=== PATIENT | female | born 1975 | race African-American/Black ===

== ENCOUNTER 2023-06-09 19:13 | Inpatient (IN) | payer OTHER ==
[~2023-06-09] VITALS: Ht 160 cm; Wt 71.7 kg
[2023-06-09 19:15] VITALS: O2SAT 100
[2023-06-09 20:59] LABS: BASOPHILS % 0.6 % (0.0-2.0); EOSINOPHILS % 0.4 % (0.0-5.0); HEMATOCRIT. 34.6 % (36.0-48.0); HEMOGLOBIN. 11.5 g/dL (12.0-16.0); LYMPHOCYTES % 13.3 % (20.0-50.0); MEAN CORPUSCULAR HEMOGLOBIN 27.7 pg (28.0-32.0); MEAN CORPUSCULAR HGB CONC 33.3 g/dL (31.0-37.0); MEAN CORPUSCULAR VOLUME 83.2 fL (81.0-99.0); MEAN PLATELET VOLUME 7.9 fl (7.4-10.4); MONOCYTES % 6.1 % (2.0-8.0); NEUTROPHILS % 79.6 % (40.0-76.0); PLATELET 334 x1000/uL (130-400); RED BLOOD CELL COUNT 4.16 mill/uL (4.2-5.4); RED CELL DISTRIBUTION WIDTH 16.6 % (11.6-14.6); WHITE BLOOD COUNT 10.8 x1000/uL (4.5-11.0)
[2023-06-09 21:05] LABS: CHLORIDE 107 mEq/L (98-107); INDEX HEMOLYSI 1 (1-3); INDEX ICTERIC 1 (1-4); INDEX LIPEMIC 1 (1-3); POTASSIUM 3.3 mEq/L (3.5-5.1); SODIUM 140 mEq/L (136-145)
[2023-06-09 21:10] LABS: HCG SCREEN NEGATIVE
[2023-06-09] MEDS ORDERED: POTASSIUM CHLORIDE 20MEQ/PACKET PO NR (21:15)
[2023-06-09 21:16] LABS: ALANINE AMINOTRANSFERASE 17 IU/L (13-61); ALBUMIN 3.5 g/dL (3.4-5.0); ASPARTATE AMINOTRANSFERASE 12 IU/L (15-37); BILIRUBIN TOTAL 0.3 mg/dL (0.1-1.0); CALCIUM 8.4 mg/dL (8.5-10.1); CARBON DIOXIDE 28 mEq/L (21-32); CREATININE 0.6 mg/dL (0.6-1.3); GLUCOSE 100 mg/dL (70-105); NT PRO B-TYPE NATRIURETIC PEP 77 pg/mL (5-125); PROTEIN TOTAL 7.2 g/dL (6.0-8.3); UREA NITROGEN BLOOD 15 mg/dL (7-21)
[2023-06-10] VITALS (9 sets, daily range): BP systolic 94–132; BP diastolic 44–79; PULSE 63–88; RESP 14–18; TEMP 97.8–98.4
[2023-06-10 00:12] LABS: TROPONIN I HIGH SENSITIVITY 557 ng/L (<54)
[2023-06-10] MEDS ORDERED: NITROGLYCERIN 0.4MG TABLET SL SL ONE (00:15)
[2023-06-10] MEDS ORDERED: HEPARIN 25,000 UNITS PREMIX 250 ML IV ONE (00:15)
[2023-06-10] MEDS ORDERED: HEPARIN 5000 UNITS/ML VIAL IV ONE (00:15)
[2023-06-10] MEDS ORDERED: HEPARIN BOLUS PRN aPTT 30-44 IV (00:30)
[2023-06-10] MEDS ORDERED: HEPARIN 25,000 UNITS PREMIX 250 ML IV SCH (00:30)
[2023-06-10] MEDS ORDERED: HEPARIN BOLUS PRN aPTT <30 IV (00:30)
[2023-06-10] MEDS ORDERED: HEPARIN 60 UNITS/KG BOLUS IV NR (00:30)
[2023-06-10 03:23] LABS: PARTIAL THROMBOPLASTIN TIME 23.9 sec (23.4-31.0); PROTHROMBIN TIME 10.7 sec (9.6-11.0)
[2023-06-10] MEDS ORDERED: LORAZEPAM 1MG TABLET PO PRN (06:15)
[2023-06-10] MEDS ORDERED: NON FORMULARY PATIENT HOME MED XX SCH (07:15)
[2023-06-10] MEDS ORDERED: OMEPRAZOLE 20MG CAPSULE EXTENDED RELEASE PO SCH (07:30)
[2023-06-10] MEDS ORDERED: ONDANSETRON HCL 4MG/2ML INJ IV PRN (07:30)
[2023-06-10] MEDS ORDERED: CLONIDINE 0.1MG TABLET PO PRN (07:30)
[2023-06-10] MEDS ORDERED: MAGNESIUM/ALUMINUM HYDROXIDE/SIMETHICONE 30ML UDC PO PRN (07:30)
[2023-06-10] MEDS ORDERED: HYDROCODONE/ACETAMINOPHEN 5/325MG TABLET PO PRN (07:30)
[2023-06-10] MEDS ORDERED: ACETAMINOPHEN 325MG TABLET PO PRN (07:30)
[2023-06-10] MEDS ORDERED: ASPIRIN 81MG EC TABLET PO SCH (09:00)
[2023-06-10] MEDS ORDERED: SERTRALINE HCL 100MG TABLET PO SCH (09:00)
[2023-06-10 09:26] LABS: EOSINOPHILS % 0.9 % (0.0-5.0); HEMATOCRIT. 35.2 % (36.0-48.0); HEMOGLOBIN. 11.6 g/dL (12.0-16.0); LYMPHOCYTES % 25.1 % (20.0-50.0); MEAN CORPUSCULAR HEMOGLOBIN 27.8 pg (28.0-32.0); MEAN CORPUSCULAR HGB CONC 32.9 g/dL (31.0-37.0); MEAN CORPUSCULAR VOLUME 84.5 fL (81.0-99.0); MEAN PLATELET VOLUME 8.1 fl (7.4-10.4); MONOCYTES % 6.7 % (2.0-8.0); NEUTROPHILS % 66.3 % (40.0-76.0); PLATELET 318 x1000/uL (130-400); RED BLOOD CELL COUNT 4.17 mill/uL (4.2-5.4); RED CELL DISTRIBUTION WIDTH 16.6 % (11.6-14.6); WHITE BLOOD COUNT 5.9 x1000/uL (4.5-11.0)
[2023-06-10 09:29] LABS: CHLORIDE 108 mEq/L (98-107); INDEX HEMOLYSI 1 (1-3); INDEX ICTERIC 1 (1-4); INDEX LIPEMIC 1 (1-3); SODIUM 140 mEq/L (136-145)
[2023-06-10 09:31] LABS: CALCIUM 8.7 mg/dL (8.5-10.1)
[2023-06-10 09:39] LABS: CARBON DIOXIDE 27 mEq/L (21-32); CHOLESTEROL 178 mg/dL (<200); CREATININE 0.6 mg/dL (0.6-1.3); GLUCOSE 97 mg/dL (70-105); HDL CHOLESTEROL 65 mg/dL (40-59); LDL CHOLESTEROL 105 mg/dL (5-100); TRIGLYCERIDE 93 mg/dL (0-150); UREA NITROGEN BLOOD 11 mg/dL (7-21)
[2023-06-10 09:43] LABS: TROPONIN I HIGH SENSITIVITY 472 ng/L (<54)
[2023-06-10] MEDS ORDERED: NITROGLYCERIN 0.4MG TABLET SL SL PRN (09:45)
[2023-06-10] MEDS ORDERED: POTASSIUM CHLORIDE 20MEQ TABLET SR PO NR (09:45)
[2023-06-10] MEDS ORDERED: ENOXAPARIN 80MG/0.8ML SYR SUBCUT SCH (10:00)
[2023-06-10 12:51] LABS: TROPONIN I HIGH SENSITIVITY 420 ng/L (<54)
[2023-06-10 15:16] LABS: TROPONIN I HIGH SENSITIVITY 393 ng/L (<54)
[2023-06-10 15:25] LABS: CLARITY URINE CLEAR (CLEAR); COLOR URINE YELLOW (YELLOW); GLUCOSE URINE NEGATIVE (NEGATIVE); KETONES URINE NEGATIVE (NEGATIVE); LEUKOCYTE ESTERASE URINE TRACE (NEGATIVE); NITRITE URINE NEGATIVE (NEGATIVE); OCCULT BLOOD URINE NEGATIVE (NEGATIVE); PH URINE 7.5 (4.5-8.0); PROTEIN URINE NEGATIVE (NEGATIVE); SPECIFIC GRAVITY URINE 1.011 (1.005-1.030); UROBILINOGEN URINE 0.2 E.U./dL (0.2-1.0)
[2023-06-10 15:31] LABS: RBC URINE 0-2 /hpf (0-2); WBC URINE 0-2 /hpf (0-2); YEAST URINE NONE SEEN
[2023-06-10 15:44] LABS: *AMPHETAMINES SCREEN URINE NEGATIVE (NEGATIVE); *BARBITURATES SCREEN URINE NEGATIVE (NEGATIVE); *BENZODIAZEPINES SCREEN URINE NEGATIVE (NEGATIVE); *COCAINE SCREEN URINE NEGATIVE (NEGATIVE); ECSTASY MDMA SCREEN URINE NEGATIVE (NEGATIVE); METHADONE URINE SCREEN NEGATIVE (NEGATIVE); OPIATES URINE SCREEN NEGATIVE (NEGATIVE); PHENCYCLIDINE URINE SCREEN NEGATIVE (NEGATIVE)
[2023-06-10 15:46] LABS: CANNABINOID URINE SCREEN PRESUMTIVE POSITIVE (NEGATIVE)
[2023-06-10 16:11] LABS: BACTERIA URINE FEW; SQUAMOUS EPITHELIAL CELL URINE FEW /lpf (RARE/1+)
[2023-06-10] MEDS ORDERED: NALOXONE HCL 0.4MG/ML VIAL IV PRN (17:00)
[2023-06-10] MEDS ORDERED: ATORVASTATIN CALCIUM 10MG TABLET PO SCH (21:00)
[2023-06-10] MEDS ORDERED: METOPROLOL TARTRATE 25MG TABLET PO SCH (21:00)
== END 2023-06-10 19:25 | disposition short-term general hospital (02) | DRG 282 ==
LOC: ER 19:13 → EDBEDREQSVC 06-10 02:56 → EDBEDREQTM 06-10 02:59 → 5EST 06-10 04:40
PROVIDERS: ADMIT Family Medicine Adult Medicine; ATTEND Family Medicine Adult Medicine
DX: I21.4 Non-ST elevation (NSTEMI) myocardial infarction (principal); F41.9 Anxiety disorder, unspecified
CPT/HCPCS: 36415; 71045; 80048; 80053; 80061; 80305; 81003; 83880; 84484; 84703; 85025; 85379; 93005; 93306; 93970; 99291; J1644